=== PATIENT | male | born 1955 | race Caucasian/White ===

== ENCOUNTER 2022-11-09 12:13 | Inpatient (IN) | payer OTHER ==
[2022-11-09 13:09] LABS: Absolute Lymphocytes (CBC) 1.5 K/uL (0.7-4.9); Hematocrit 27.6 % (39.6-49.0); MCV 85.6 fL (80-100); MPV 7.7 fL (7.6-11.3); RBC Red Blood Cell Count 3.22 M/uL (4.33-5.43)
[2022-11-09 13:10] LABS: Protime INR 1.08
--- NOTE | 2022-11-09 13:11 | RAD REPORT ---
EXAM DESCRIPTION: RAD - Chest Single View - 11/09/2022 1:06 pm CLINICAL HISTORY: elevated K+ Chest pain. COMPARISON: Abdomen Acute Series dated 03/06/2022; CHEST SINGLE VIEW dated 06/20/2012 FINDINGS: Portable technique limits examination quality. The lungs are grossly clear. The heart is normal in size. No displaced fractures. IMPRESSION: No acute intrathoracic process suspected.
[2022-11-09 13:32] LABS: ALT/SGPT 18 U/L (16-61); AST/SGOT 16 U/L (15-37); Albumin 3.2 g/dL (3.4-5.0); Alkaline Phosphatase 95 U/L (45-117); BUN Blood Urea Nitrogen 56 mg/dL (7-18); Bicarbonate 17 mEq/L (21-32); Bilirubin Total 0.3 mg/dL (0.2-1.0); Glomerular Filtration Rate 21 ml/min (=/>90); Glucose Level 183 mg/dL (74-106); NT PRO-BNP 166 pg/mL (<125); Protein, Total 6.4 g/dL (6.4-8.2); Sodium Level 137 mEq/L (136-145); Troponin High Sensitivity 29.3 pg/mL (<58.9)
[2022-11-09 13:33] LABS: Bilirubin Direct < 0.1 mg/dL (0-0.2); Bilirubin Indirect, Calculated ND mg/dL (0.2-0.8)
[2022-11-09 13:36] LABS: Potassium 6.4 mEq/L (3.5-5.1)
[2022-11-09] MEDS ORDERED: ALBUTEROL 2.5 MG/3 ML NEB SOL ONE (14:18)
[2022-11-09] MEDS ORDERED: INSULIN -REGULAR HUMAN 50 UNIT/0.5 ML ML ONE ×2 (14:18→17:27)
[2022-11-09] MEDS ORDERED: D5W 1,000 ML IV ONE (14:19)
[2022-11-09] MEDS ORDERED: NA CHLORIDE 0.9% 500 ML ONE (14:19)
[2022-11-09] MEDS ORDERED: CALCIUM GLUCONATE 1 GM IVPB 1 GM/50 ML BAG IV ONE (14:19)
--- NOTE | 2022-11-09 14:23 | EDPHYS ---
Physician Documentation [facility] Name: Sergo Quinones Age: 67 yrs Sex: Male : 1955 Arrival Date: 11/09/2022 Time: 12:13 Bed 6 Private MD: ED Physician Leo Cohn HPI: 11/09 12:52 This 67 yrs old Male presents to ER via Ambulatory with complaints of Abnormal Lab snw Results. 12:52 Onset: The symptoms/episode began/occurred acutely. Associated signs and symptoms: The snw patient has no apparent associated signs or symptoms. Modifying factors: The patient symptoms are alleviated by nothing. It is unknown whether or not the patient has had similar symptoms in the past. Saw Dr. Diamond, routine labs collected. Pt had repeat labs and then the office called him and directed him to the ED for elevated potassium. . Pt currently not taking some of his blood pressure medications as his bp has been in range. . Historical: - Allergies: 12:22 No Known Allergies; cm10 - Home Meds: 12:22 Farxiga 5 mg oral tablet [Active]; rosuvastatin 20 mg oral tablet [Active]; clonidine cm10 HCl 0.3 mg Oral tablet [Active]; allopurinol 100 mg Oral tablet [Active]; spironolactone 50 mg Oral tablet [Active]; - PMHx: 12:22 diabetes mellitus; Hypercholesterolemia; Hypertensive disorder; cm10 - PSHx: 12:22 back; leg; Shoulder; cm10 - Immunization history:: Adult Immunizations unknown. - Social history:: Smoking status: Patient reports use of chewing tobacco. ROS: 12:52 Constitutional: Negative for fever, chills, and weight loss, Eyes: Negative for injury, snw pain, redness, and discharge, ENT: Negative for injury, pain, and discharge, Neck: Negative for injury, pain, and swelling, Cardiovascular: Negative for chest pain, palpitations, and edema, Respiratory: Negative for shortness of breath, cough, wheezing, and pleuritic chest pain, Abdomen/GI: Negative for abdominal pain, nausea, vomiting, diarrhea, and constipation, Back: Negative for injury and pain, : Negative for injury, bleeding, discharge, and swelling, MS/Extremity: Negative for injury and deformity, Skin: Negative for injury, rash, and discoloration, Neuro: Negative for headache, weakness, numbness, tingling, and seizure, Psych: Negative for depression, anxiety, suicide ideation, homicidal ideation, and hallucinations. Exam: 12:52 Constitutional: This is a well developed, well nourished patient who is awake, alert, snw and in no acute distress. Head/Face: Normocephalic, atraumatic. Eyes: Pupils equal round and reactive to light, extra-ocular motions intact. Lids and lashes normal. Conjunctiva and sclera are non-icteric and not injected. Cornea within normal limits. Periorbital areas with no swelling, redness, or edema. ENT: Nares patent. No nasal discharge, no septal abnormalities noted. Tympanic membranes are normal and external auditory canals are clear. Oropharynx with no redness, swelling, or masses, exudates, or evidence of obstruction, uvula midline. Mucous membranes moist. Neck: Trachea midline, no thyromegaly or masses palpated, and no cervical lymphadenopathy. Supple, full range of motion without nuchal rigidity, or vertebral point tenderness. No Meningismus. Chest/axilla: Normal chest wall appearance and motion. Nontender with no deformity. No lesions are appreciated. Cardiovascular: Regular rate and rhythm with a normal S1 and S2. No gallops, murmurs, or rubs. Normal PMI, no JVD. No pulse deficits. Respiratory: Lungs have equal breath sounds bilaterally, clear to auscultation and percussion. No rales, rhonchi or wheezes noted. No increased work of breathing, no retractions or nasal flaring. Abdomen/GI: Soft, non-tender, with normal bowel sounds. No distension or tympany. No guarding or rebound. No evidence of tenderness throughout. Back: No spinal tenderness. No costovertebral tenderness. Full range of motion. Skin: Warm, dry with normal turgor. Normal color with no rashes, no lesions, and no evidence of cellulitis. MS/ Extremity: Pulses equal, no cyanosis. Neurovascular intact. Full, normal range of motion. Neuro: Awake and alert, GCS 15, oriented to person, place, time, and situation. Cranial nerves II-XII grossly intact. Motor strength 5/5 in all extremities. Sensory grossly intact. Cerebellar exam normal. Normal gait. Psych: Awake, alert, with orientation to person, place and time. Behavior, mood, and affect are within normal limits. Vital Signs: 10:00 BP 127 / 65; Pulse 56; Resp 18; Pulse Ox 97% on R/A; db 11:00 BP 113 / 60; Pulse 45; Resp 16; Pulse Ox 95% on R/A; db 12:21 BP 120 / 67; Pulse 78; Resp 16; Temp 98.1(TE); Pulse Ox 100% on R/A; Weight 81.65 kg; cm10 Height 5 ft. 9 in. ; Pain 0/10; 12:45 BP 103 / 65; Pulse 68; Resp 16; Pulse Ox 99% on R/A; db 14:00 BP 112 / 71; Pulse 64; Resp 18; Pulse Ox 99% on R/A; db 15:28 BP 136 / 61; Pulse 74; Resp 16; Pulse Ox 98% on R/A; iw 12:21 Body Mass Index 26.58 (81.65 kg, 175.26 cm) cm10 12:21 Pain Scale: Adult cm10 MDM: 12:25 Patient medically screened. snw 14:22 Differential diagnosis: HEMANT, renal failure, medication toxic effect, dehydration. Data snw reviewed: vital signs, nurses notes. Management of patient was discussed with the following: Hospitalist: Dr. Matias, Dr. Jennyfer pugh. Counseling: I had a detailed discussion with the patient and/or guardian regarding: the historical points, exam findings, and any diagnostic results supporting the discharge/admit diagnosis, lab results, radiology results, the need for further work-up and treatment in the hospital. 14:35 Management of patient was discussed with the following: Communication Analyst: Nephrology called snw and ivf rate changed, will give another 500ml NS bolus. He will kindly place orders for Kayexalate and other labs/meds. Special discussion: Based on the history and exam findings, there is no indication for further emergent testing or inpatient evaluation. 11/09 12:26 Order name: Basic Metabolic Panel; Complete Time: 13:50 snw 11/09 12:26 Order name: CBC with Diff; Complete Time: 13:15 snw 11/09 12:26 Order name: LFT's; Complete Time: 13:50 snw 11/09 12:26 Order name: Magnesium; Complete Time: 13:50 snw 11/09 12:26 Order name: NT PRO-BNP; Complete Time: 13:50 snw 11/09 12:26 Order name: PT-INR; Complete Time: 13:15 snw 11/09 12:26 Order name: Troponin HS; Complete Time: 13:50 snw 11/09 14:26 Order name: Urine W/Microscopic (UAM); Complete Time: 15:10 snw 11/09 14:26 Order name: Urine Potassium Random; Complete Time: 15:18 snw 11/09 14:33 Order name: Potassium; Complete Time: 17:12 EDMS 11/09 14:33 Order name: Urinalysis W/Microscopic EDMS 11/09 14:38 Order name: Urine For Protein, Random; Complete Time: 15:10 snw 11/09 16:04 Order name: Glucose, Ancillary Testing; Complete Time: 16:04 EDMS 11/09 17:26 Order name: Glucose, Ancillary Testing; Complete Time: 17:27 EDMS 11/09 12:26 Order name: XRAY Chest (1 view); Complete Time: 13:15 snw 11/09 15:33 Order name: Abdomen ; Complete Time: 16:01 EDMS 11/09 12:26 Order name: EKG; Complete Time: 12:27 snw 11/09 12:26 Order name: Cardiac monitoring; Complete Time: 13:17 snw 11/09 12:26 Order name: EKG - Nurse/Tech; Complete Time: 13:15 snw 11/09 12:26 Order name: IV Saline Lock; Complete Time: 12:53 snw 11/09 12:26 Order name: Labs collected and sent; Complete Time: 12:53 snw 11/09 12:26 Order name: O2 Per Protocol; Complete Time: 12:53 snw 11/09 12:26 Order name: O2 Sat Monitoring; Complete Time: 12:54 snw 11/09 14:31 Order name: Misc. Order: slow D5 soln to 82ml/hr; Complete Time: 14:41 snw 11/09 16:05 Order name: PO challenge; Complete Time: 16:19 snw Administered Medications: 13:50 CANCELLED (Other Intervention Used): D10 in Water IVP 160 ml IVP once snw 14:24 Drug: D5W IV 100 mEq/L 1000 ml Route: IV; Rate: 200 ml/hr; Site: right antecubital; iw 14:30 Follow up: IV Status: Completed infusion iw 14:33 Drug: Albuterol Inhalation 2.5 mg Route: Inhalation; iw 14:34 Drug: Calcium Gluconate IVPB 1 grams Route: IVPB; Infused Over: 60 mins; Site: left iw forearm; 15:35 Follow up: IV Status: Completed infusion iw 14:34 Drug: Albuterol Inhalation 2.5 mg Route: Inhalation; iw 14:34 Drug: Albuterol Inhalation 2.5 mg Route: Inhalation; iw 14:42 Drug: NS 0.9% IV 500 ml Route: IV; Rate: bolus; Site: right forearm; iw 15:40 Follow up: IV Status: Completed infusion iw 14:45 Drug: Insulin Regular Human IVP 10 units {Co-Signature: iw (Jazmyn Steen RN).} aa5 Route: IVP; Site: right forearm; 15:00 Follow up: Response: No adverse reaction iw 11/10 07:13 Not Given (Other Intervention Used): NS 0.9% IV 500 ml IV at bolus once iw 07:13 Not Given (Other Intervention Used): Insulin Regular Human IVP 5 units IVP once iw Disposition Summary: 11/09/22 14:22 Hospitalization Ordered Hospitalization Status: Inpatient Admission snw Provider: Arun Matias Location: Telemetry/MedSurg (Inpatient) snw Condition: Stable snw Problem: new snw Symptoms: are unchanged snw Bed/Room Type: Standard snw Room Assignment: 404(11/09/22 17:03) dw Diagnosis - 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 snw snw 17:03 14:22 snw dw
--- NOTE | 2022-11-09 14:23 | ER ---
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 Pt denies any complaints at this time. Coronavirus screen: Vaccine status: Patient reports receiving the 2nd dose of the covid vaccine. Client denies travel out of the [place] in the last 14 days. At this time, the client does not indicate any symptoms associated with coronavirus-19. Ebola Screen: Patient denies travel to an Ebola-affected area in the 21 days before illness onset. 12:20 Method Of Arrival: Ambulatory cm10 12:21 Initial Sepsis Screen: Does the patient meet any 2 criteria? No. Patient's initial cm10 sepsis screen is negative. Does the patient have a suspected source of infection? No. Patient's initial sepsis screen is negative. Risk Assessment: Do you want to hurt yourself or someone else? Patient reports no desire to harm self or others. Onset of symptoms was November 09, 2022. 12:21 Acuity: FITO 3 cm10 Triage Assessment: 12:25 General: Appears in no apparent distress. comfortable, Behavior is calm, cooperative. cm10 Pain: Denies pain. Historical: - Allergies: 12:22 No Known Allergies; cm10 - Home Meds: 12:22 Farxiga 5 mg oral tablet [Active]; rosuvastatin 20 mg oral tablet [Active]; clonidine cm10 HCl 0.3 mg Oral tablet [Active]; allopurinol 100 mg Oral tablet [Active]; spironolactone 50 mg Oral tablet [Active]; - PMHx: 12:22 diabetes mellitus; Hypercholesterolemia; Hypertensive disorder; cm10 - PSHx: 12:22 back; leg; Shoulder; cm10 - Immunization history:: Adult Immunizations unknown. - Social history:: Smoking status: Patient reports use of chewing tobacco. Screenin:[address] [facility] ED Fall Risk Assessment (Adult) History of falling in the last 3 months, iw including since admission. Abuse screen: Denies threats or abuse. Denies injuries from another. Nutritional screening: No deficits noted. Tuberculosis screening: No symptoms or risk factors identified. Assessment: 12:54 General: Appears in no apparent distress. comfortable, Behavior is calm, cooperative. iw Pain: Denies pain. Neuro: Level of Consciousness is awake, alert, obeys commands, Oriented to person, place, time, situation, Moves all extremities. Full function. Cardiovascular: Patient's skin is warm and dry. Respiratory: Respiratory effort is even, unlabored, Respiratory pattern is regular, symmetrical. Derm: Skin is intact, is healthy with good turgor. Musculoskeletal: Range of motion: intact in all extremities. 12:56 Reassessment: Patient appears in no apparent distress at this time. Patient and/or db family updated on plan of care and expected duration. Pain level reassessed. Patient is alert, oriented x 3, equal unlabored respirations, skin warm/dry/pink. 14:16 Reassessment: Patient appears in no apparent distress at this time. Patient and/or iw family updated on plan of care and expected duration. Pain level reassessed. Patient is alert, oriented x 3, equal unlabored respirations, skin warm/dry/pink. Patient denies pain at this time. 15:28 Reassessment: Patient appears in no apparent distress at this time. Patient and/or iw family updated on plan of care and expected duration. Pain level reassessed. Patient is alert, oriented x 3, equal unlabored respirations, skin warm/dry/pink. Vital Signs: 10:00 BP 127 / 65; Pulse 56; Resp 18; Pulse Ox 97% on R/A; db 11:00 BP 113 / 60; Pulse 45; Resp 16; Pulse Ox 95% on R/A; db 12:21 BP 120 / 67; Pulse 78; Resp 16; Temp 98.1(TE); Pulse Ox 100% on R/A; Weight 81.65 kg; cm10 Height 5 ft. 9 in. ; Pain 0/10; 12:45 BP 103 / 65; Pulse 68; Resp 16; Pulse Ox 99% on R/A; db 14:00 BP 112 / 71; Pulse 64; Resp 18; Pulse Ox 99% on R/A; db 15:28 BP 136 / 61; Pulse 74; Resp 16; Pulse Ox 98% on R/A; iw 12:21 Body Mass Index 26.58 (81.65 kg, 175.26 cm) cm10 12:21 Pain Scale: Adult cm10 ED Course: 12:16 Patient arrived in ED. im 12:22 Triage completed. cm10 12:25 Amrita Alarcon FNP-C is PHCP. snw 12:25 Leo Cohn MD is Attending Physician. snw 12:25 Arm band placed on Patient placed in an exam room, on a stretcher. cm10 12:46 Jazmyn Steen, RONEY is Primary Nurse. iw 12:54 Inserted saline lock: 20 gauge in right forearm, using aseptic technique. Blood iw collected. 12:56 Patient has correct armband on for positive identification. Bed in low position. Call db light in reach. Side rails up X 1. Client placed on continuous cardiac and pulse oximetry monitoring. NIBP monitoring applied. Warm blanket given. 13:08 XRAY Chest (1 view) In Process Unspecified. EDMS 13:36 Notified Nurse Practitioner and/or Physician Trailer Park Manager of a critical lab result(s), aa5 Potassium 6.4. 14:21 Arun Matias is Hospitalizing Provider. snw 15:28 No provider procedures requiring assistance completed. iw 15:46 Bladder scan completed. [address] Cohn notified. sc3 15:51 Abdomen In Process Unspecified. EDMS 16:33 Potassium Sent. iw 17:52 Patient admitted, IV remains in place. iw Administered Medications: 13:50 CANCELLED (Other Intervention Used): D10 in Water IVP 160 ml IVP once snw 14:24 Drug: D5W IV 100 mEq/L 1000 ml Route: IV; Rate: 200 ml/hr; Site: right antecubital; iw 14:30 Follow up: IV Status: Completed infusion iw 14:33 Drug: Albuterol Inhalation 2.5 mg Route: Inhalation; iw 14:34 Drug: Calcium Gluconate IVPB 1 grams Route: IVPB; Infused Over: 60 mins; Site: left iw forearm; 15:35 Follow up: IV Status: Completed infusion iw 14:34 Drug: Albuterol Inhalation 2.5 mg Route: Inhalation; iw 14:34 Drug: Albuterol Inhalation 2.5 mg Route: Inhalation; iw 14:42 Drug: NS 0.9% IV 500 ml Route: IV; Rate: bolus; Site: right forearm; iw 15:40 Follow up: IV Status: Completed infusion iw 14:45 Drug: Insulin Regular Human IVP 10 units {Co-Signature: grace (Jazmyn Steen RN).} aa5 Route: IVP; Site: right forearm; 15:00 Follow up: Response: No adverse reaction iw 11/10 07:13 Not Given (Other Intervention Used): NS 0.9% IV 500 ml IV at bolus once iw 07:13 Not Given (Other Intervention Used): Insulin Regular Human IVP 5 units IVP once iw Medication: 11/09 12:54 VIS not applicable for this client. iw Outcome: 14:22 Decision to Hospitalize by Provider. snw 17:52 Admitted to Tele accompanied by tech, via wheelchair. iw 17:52 Condition: good 17:52 Discharge instructions given to patient, Instructed on the need for admit. 17:53 Patient left the ED. iw Signatures: Dispatcher [employer] EDMS Amrita Alarcon, CODING EDUCATOR-C CODING EDUCATOR-Csnw Jazmyn Steen, RN RN iw Nydia Hernandez RN RN aa5 Yashira Soler, RN RN Amaya Sandoval Clarissa RN RN cm10 Jeffrey Gonzalez, RN RN sc3 Jazmyn Steen RN iw
[2022-11-09] MEDS ORDERED: SODIUM ZIRCONIUM CYCLOSILICATE 10 GM/PKT PO ONE (15:00)
[2022-11-09 15:02] LABS: Urine Bacteria None Seen /HPF (<20); Urine Bilirubin NEGATIVE (Negative); Urine Blood Negative (Negative); Urine Clarity Clear (Clear); Urine Color Colorless (Yellow); Urine Glucose 3+ (Negative); Urine Protein 2+ (Negative); Urine RBC <5 /HPF (None Seen); Urine Urobilinogen Normal (Normal); Urine pH 5.5 (5.0-7.0)
[2022-11-09] MEDS: NACHLORIDE 0.45% 1,000 ML with NA BICARB 8.4% 75 MEQ IV SCH ×2 (15:45)
--- NOTE | 2022-11-09 15:58 | RAD REPORT ---
EXAM DESCRIPTION: CT - Abdomen Pelvis Wo Contrast - 11/09/2022 3:49 pm CLINICAL HISTORY: Abdominal pain. HEMANT COMPARISON: Abdomen Pelvis Wo Contrast dated 03/06/2022 TECHNIQUE: CT imaging of the abdomen and pelvis was performed without contrast. Solid organ, bowel a nd vascular assessment is limited due to lack of IV and oral contrast. All CT scans are performed using dose optimization technique as appropriate and may include automated exposure control or mA/KV adjustment according to patient size. FINDINGS: The lower lung cardenas are clear. The liver, spleen, pancreas, adrenal glands are within normal limits for a limited non-contrast exami nation.Bilateral renal cysts, likely benign. Mild cortical thinning bilateral kidneys. No bowel obstruction, free air, free fluid or abscess. Significant stool is present throughout the co placido. The appendix is normal. Mild lower lumbar degenerative changes.Small bilateral fat containing inguinal hernias. IMPRESSION: Significant stool is present throughout the colon. A limited non-contrast examination was performed as detailed.
--- NOTE | 2022-11-09 16:27 | P.HP ---
Certification for Inpatient Patient admitted to: Inpatient With expected LOS: >2 Midnights Practitioner: I am a practitioner with admitting privileges, knowledge of patient current condition, hospital course, and medical plan of care. Services: Services provided to patient in accordance with Admission requirements found in Title 42 Section 412.3 of the Code of Federal Regulations Patient History Date of Service: 11/09/22 Reason for admission: Abnormal labs History of Present Illness: 67-year-old gentleman with a history of hypertension, diabetes mellitus was referred to the emergency department by his PCP due to hyperkalemia and acute renal failure on his most recent labs. Patient denies any complain. He denied any nausea or vomiting or diarrhea or any reason for dehydration. He stated he has been seeing urology Dr. Huff for enlarged prostate, urinary retention with dribbling. He states that he was prescribed a statin medication for urinary retention but he stopped taking it due to dizziness. He also stated his PCP recently told him not to take his antihypertensives due to borderline low blood pressure. Blood work in the ED demonstrated potassium level of 6.4, HEMANT with creatinine of 3.13 and metabolic acidosis. Postvoid urine according to the ED provider was 115 ml. Nephrology was contacted, patient given Lokelma and started on bicarb drip. He is admitted for further management. Allergies No Known Allergies Allergy (Unverified 06/20/12 21:10) - Past Medical/Surgical History -: Essential hypertension -: Diabetes mellitus type -: BPH - Family History Mother -: Other (see notes) (Arthritis) - Social History Smoking Status: Never smoker Alcohol use: No CD- Drugs: No Place of Residence: Home Review of Systems Other: Patient denied any fever. He denied any constipation. He denied any headache or confusion. Except as documented, all other systems reviewed and negative. Physical Examination - Physical Exam General: Alert, In no apparent distress, Oriented x3 HEENT: PERRLA, Mucous membr. moist/pink, Sclerae nonicteric Neck: Supple, JVD not distended Respiratory: Clear to auscultation bilaterally, Normal air movement Cardiovascular: No edema, Regular rate/rhythm, Normal S1 S2 Gastrointestinal: Normal bowel sounds, Soft and benign, Non-distended, No tenderness Musculoskeletal: No swelling, No tenderness Integumentary: No rashes, No cyanosis Neurological: Normal speech, Normal strength at 5/5 x4 extr, Cranial nerves 3-12 intact Lymphatics: No axilla or inguinal lymphadenopathy - Studies Laboratory Data (last 24 hrs) 11/09/22 12:50: PT 11.9, INR 1.08 11/09/22 12:50: WBC 11.10 H, Hgb 9.0 L, Hct 27.6 L, Plt Count 262 11/09/22 12:50: Sodium 137, Potassium 6.4 H*, BUN 56 H, Creatinine 3.13 H, Glucose 183 H, Magnesium 2.0, Total Bilirubin 0.3, AST 16, ALT 18, Alkaline Phosphatase 95 Assessment and Plan - Problems (Diagnosis) (1) Hyperkalemia Current Visit: Yes Status: Acute (2) Acute kidney injury Current Visit: Yes Status: Acute (3) Essential hypertension Current Visit: Yes Status: Acute (4) Diabetes mellitus type 2 in nonobese Current Visit: Yes Status: Acute - Plan Admit patient to the medical floor. Nephrology consulted, patient given Lokelma and bicarb drip. Continue bicarb Repeat potassium level shows improvement. Aggressive IV hydration. Patient noted to be borderline hypotensive. HEMANT possibly secondary to ATN. CT abdomen and pelvis results reviewed-no obstructive uropathy. No antihypertensives. Monitor renal function and urine output. - Advance Directives Does patient have a Living Will: No Does patient have a Durable POA for Healthcare: No
[2022-11-09] MEDS ORDERED: ACETAMINOPHEN 500 MG TAB PO PRN (17:15)
[2022-11-09] MEDS ORDERED: ONDANSETRON 4 MG/2 ML VIAL IV PRN (17:15)
[2022-11-09] MEDS: INSULIN -REGULAR HUMAN 50 UNIT/0.5 ML ML SQ SCH ×2 (17:15→21:00)
[2022-11-09] MEDS ORDERED: HEPARIN 5000 UNIT/ML 1 ML VIAL ONE (17:42)
[2022-11-09] MEDS: HEPARIN 5000 UNIT/ML 1 ML VIAL SQ SCH (17:50)
[2022-11-09 19:23] VITALS: BMI 26.6
--- NOTE | 2022-11-09 19:29 | P.PN ---
Brief Renal note (chart review only, full consult note to follow) Stage II HEMATN on underlying CKD NOS, prior labs in this EMR show elevated Cr level and renal imaging reports some cortical thinning. HEMANT appears to be in the setting of relative hypotension, concurrent ACEi and other medication use. Will see if this is more of a functional injury that quickly recovers. Hyperkalemia washout therapy ordered, repeat K is < 5.5. Bicarb added IVF ordered. Jose Tanner MD, SIMEON
[2022-11-09 23:33] LABS: Specific Gravity 1.005 (1.005-1.030); Urine Bacteria None Seen /HPF (<20); Urine Bilirubin NEGATIVE (Negative); Urine Blood Negative (Negative); Urine Clarity Clear (Clear); Urine Color Colorless (Yellow); Urine Glucose 4+ (Negative); Urine Protein 1+ (Negative); Urine RBC <5 /HPF (None Seen); Urine Urobilinogen Normal (Normal); Urine pH 5.5 (5.0-7.0)
[2022-11-10] MEDS: HEPARIN 5000 UNIT/ML 1 ML VIAL SQ SCH ×3 (00:17→17:13)
[2022-11-10] MEDS ORDERED: NACHLORIDE 0.45% 0 ML IV ONE (00:35)
[2022-11-10] MEDS ORDERED: SODIUM BICARB 50 MEQ/50ML VIAL ONE ×3 (00:35→13:02)
[2022-11-10 01:00] VITALS: O2SAT 99
[2022-11-10] MEDS: NACHLORIDE 0.45% 1,000 ML with NA BICARB 8.4% 75 MEQ IV SCH ×2 (01:59)
[2022-11-10 04:09] LABS: Absolute Lymphocytes (CBC) 2.1 K/uL (0.7-4.9); Lymphocytes % 17.4 % (15.3-44.8); MCV 85.6 fL (80-100); MPV 7.9 fL (7.6-11.3)
[2022-11-10 04:18] LABS: Magnesium 1.9 mg/dL (1.6-2.4); Phosphorus 4.6 mg/dL (2.5-4.9); Potassium 5.1 mEq/L (3.5-5.1)
[2022-11-10] MEDS: INSULIN -REGULAR HUMAN 50 UNIT/0.5 ML ML SQ SCH ×4 (07:30→21:13)
[2022-11-10] MEDS ORDERED: NACHLORIDE 0.45% 1,000 ML with NA BICARB 8.4% 75 MEQ IV SCH ×2 (10:46)
--- NOTE | 2022-11-10 11:44 | P.CNS ---
Date of Consult: 11/10/22 Reason for Consult: HEMANT, hyperkalemia Requesting Physician: lasha lee Chief Complaint: Abnormal labs History of Present Illness: Pt is a 67 yo male with a history of chronic hypertension on multiple BP lowering agents, non insulin dependent diabetes mellitus who was referred to the emergency department by his PCP due to abnormal labs. Patient cites some lower BP recently down into the systolic teens and reports losing as much as 20 lbs recently with diuretics such as Spironolactone which he was holding. He denies any nausea or vomiting or diarrhea. His labs on admission revealed HEMANT, hyperkalemia and metab acidosis. Allergies No Known Allergies Allergy (Unverified 06/20/12 21:10) Home Medications: Amlodipine Besylate 1 tab PO DAILY 11/10/22 Dapagliflozin Propanediol [Farxiga] 1 tab PO DAILY 11/10/22 Rosuvastatin Calcium [Crestor] 1 tab PO DAILY 11/10/22 Spironolactone 1 tab PO DAILY 11/10/22 Tamsulosin HCl [Flomax] 1 tab PO DAILY 11/10/22 allopurinoL [Allopurinol] 1 tab PO DAILY 11/10/22 cloNIDine HCL [Catapres*] 1 tab PO TID 11/10/22 lisinopriL [Lisinopril] 1 tab PO DAILY 11/10/22 - Past Medical/Surgical History -: Essential hypertension -: Diabetes mellitus type -: BPH - Family History Mother Medical History: Other (see notes) - Social History Alcohol use: No CD- Drugs: No Caffeine use: No Place of Residence: Home Review of Systems General: As per HPI Eyes: Unremarkable ENT: Unremarkable Respiratory: Unremarkable Cardiovascular: Light Headedness, As per HPI Gastrointestinal: Unremarkable Genitourinary: Unremarkable Musculoskeletal: Unremarkable Integumentary: Unremarkable Neurological: Unremarkable Lymphatics: Unremarkable Physical Examination Temp Pulse Resp BP Pulse Ox 99.0 F 86 16 177/81 H 96 11/10/22 08:00 11/10/22 08:00 11/10/22 08:00 11/10/22 08:00 11/10/22 08:00 General: Alert, In no apparent distress, Cooperative HEENT: Atraumatic, Normocephalic Neck: Supple Respiratory: Clear to auscultation bilaterally, Normal air movement Cardiovascular: No edema, Regular rate/rhythm, Normal S1 S2 Gastrointestinal: Soft and benign, Non-distended, No tenderness Musculoskeletal: No clubbing, No swelling, No contractures, No erythema Integumentary: No rashes, No breakdown Neurological: Normal speech, Sensation intact, Normal affect Laboratory Data (last 24 hrs) 11/09/22 12:50: PT 11.9, INR 1.08 11/09/22 12:50: WBC 11.10 H, Hgb 9.0 L, Hct 27.6 L, Plt Count 262 11/09/22 12:50: Sodium 137, Potassium 6.4 H*, BUN 56 H, Creatinine 3.13 H, Glucose 183 H, Magnesium 2.0, Total Bilirubin 0.3, AST 16, ALT 18, Alkaline Phosphatase 95 Conclusions/Impression: A/P) 1. Stage II HEMANT on underlying CKD NOS, prior labs in this EMR show elevated Cr level and renal imaging reports some cortical thinning. HEMANT appears to be functional injury in the setting of relative hypotension, concurrent ACEi and diuretic use (with both mod strength aldosterone antagonist use along with a SGLT2i agent which can also cause vol depletion). 2. Cr level downward trending post hydration 3. UA on admission not too remarkable 3. Hyperkalemia resolved s/p medical washout therapy 4. Metab acidosis in the setting of HEMANT, reduced renal ammoniagenesis and Aldactone use -bicarb deficit improved. 5. Cont to hold Lisinopril, Spironolactone, Farxiga. 6. Monitor BP trend, check orthostatic vitals, will stop IVF early on. Will slowly re-introduce BP meds. Jose Tanner MD, SIMEON
--- NOTE | 2022-11-10 11:54 | P.PN ---
Subjective Date of Service: 11/10/22 Chief Complaint: Abnormal labs Patient has no new complain. No issues overnight. Physical Examination - Vital Signs Temperature: 99.0 F Blood Pressure: 177/81 Pulse: 86 Respirations: 16 Pulse Ox (%): 96 - Physical Exam General: Alert, In no apparent distress, Oriented x3 HEENT: Mucous membr. moist/pink Neck: Supple, JVD not distended Respiratory: Clear to auscultation bilaterally, Normal air movement Cardiovascular: No edema, Regular rate/rhythm, Normal S1 S2 Gastrointestinal: Normal bowel sounds, Soft and benign, Non-distended, No tenderness Musculoskeletal: No swelling Integumentary: No rashes, No cyanosis Neurological: Normal strength at 5/5 x4 extr - Studies Laboratory Data (last 24 hrs) 11/09/22 12:50: PT 11.9, INR 1.08 11/09/22 12:50: WBC 11.10 H, Hgb 9.0 L, Hct 27.6 L, Plt Count 262 11/09/22 12:50: Sodium 137, Potassium 6.4 H*, BUN 56 H, Creatinine 3.13 H, Glucose 183 H, Magnesium 2.0, Total Bilirubin 0.3, AST 16, ALT 18, Alkaline Phosphatase 95 Assessment And Plan - Current Problems (Diagnosis) (1) Hyperkalemia Current Visit: Yes Status: Acute (2) Acute kidney injury Current Visit: Yes Status: Acute (3) Essential hypertension Current Visit: Yes Status: Acute (4) Diabetes mellitus type 2 in nonobese Current Visit: Yes Status: Acute (5) BPH (benign prostatic hyperplasia) Current Visit: Yes Status: Acute - Plan Status post [facility] for hyperkalemia. Hyperkalemia resolved. Metabolic acidosis is improving with bicarb drip Nephrology is managing. Fluid and BP management per nephrology. Patient was initially borderline hypotensive. Blood pressure has improved and patient is currently hypertensive. HEMANT possibly secondary to ATN. CT abdomen and pelvis results reviewed-no obstructive uropathy. Monitor renal function and urine output. Start [id number] given hypertension, titrated to 10 mg daily as needed. Hold lisinopril and Aldactone. Continue tamsulosin. Hold Farxiga.
[2022-11-10] MEDS ORDERED: NACHLORIDE 0.45% 1,000 ML IV ONE (12:51)
[2022-11-10] MEDS: allopurinoL 100 MG TAB PO SCH (13:07)
[2022-11-10] MEDS: AMLODIPINE 5 MG TAB PO SCH (13:07)
[2022-11-10] MEDS ORDERED: ROSUVASTATIN 10 MG TAB PO SCH (21:00)
[2022-11-10] MEDS ORDERED: FAMOTIDINE 20 MG/2 ML VIAL IV ONE (22:30)
[2022-11-11] MEDS: HEPARIN 5000 UNIT/ML 1 ML VIAL SQ SCH ×2 (00:49→07:49)
[2022-11-11 04:21] LABS: Absolute Lymphocytes (CBC) 1.7 K/uL (0.7-4.9); Hematocrit 28.8 % (39.6-49.0); Lymphocytes % 13.9 % (15.3-44.8); MPV 7.8 fL (7.6-11.3); RBC Red Blood Cell Count 3.39 M/uL (4.33-5.43)
[2022-11-11 04:32] LABS: Albumin 3.1 g/dL (3.4-5.0); Phosphorus 3.4 mg/dL (2.5-4.9); Potassium 4.9 mEq/L (3.5-5.1)
[2022-11-11 04:42] VITALS: TEMP 97.8
[2022-11-11] MEDS: INSULIN -REGULAR HUMAN 50 UNIT/0.5 ML ML SQ SCH (07:30)
[2022-11-11] MEDS: AMLODIPINE 5 MG TAB PO SCH (07:48)
[2022-11-11] MEDS: allopurinoL 100 MG TAB PO SCH (07:49)
[2022-11-11 07:53] VITALS: BP 155/74
[2022-11-11] MEDS ORDERED: TAMSULOSIN 0.4 MG SR CAP PO SCH (09:00)
[2022-11-11] MEDS ORDERED: HOME MED 1 EA UNK (Rosuvastatin Calcium [Crestor] 20 MG Tablet) PO SCH (09:00)
--- NOTE | 2022-11-11 11:09 | P.DS ---
Admission Date: 11/09/22 Discharge Date: 11/11/22 Disposition: ROUTINE DISCHARGE Discharge Condition: FAIR Reason for Admission: Abnormal labs - Problems (1) Hyperkalemia Current Visit: Yes Status: Acute (2) Acute kidney injury Current Visit: Yes Status: Acute (3) Essential hypertension Current Visit: Yes Status: Acute (4) Diabetes mellitus type 2 in nonobese Current Visit: Yes Status: Acute (5) BPH (benign prostatic hyperplasia) Current Visit: Yes Status: Acute Brief History of Present Illness: 67-year-old gentleman with a history of hypertension, diabetes mellitus was referred to the emergency department by his PCP due to hyperkalemia and acute renal failure on his most recent labs. Patient denies any complain. He denied any nausea or vomiting or diarrhea or any reason for dehydration. He stated he has been seeing urology Dr. Huff for enlarged prostate, urinary retention with dribbling. He states that he was prescribed a statin medication for urinary retention but he stopped taking it due to dizziness. He also stated his PCP recently told him not to take his antihypertensives due to borderline low blood pressure. Blood work in the ED demonstrated potassium level of 6.4, HEMANT with creatinine of 3.13 and metabolic acidosis. Postvoid urine according to the ED provider was 115 ml. Nephrology was contacted, patient given Lokelma and started on bicarb drip. He was admitted for further management. Hospital Course: Patient admitted to the medical floor and hydrated with IV bicarb drip. Status post Lokelma for hyperkalemia. Hyperkalemia resolved. Metabolic acidosis improved with bicarb drip Nephrology evaluated patient and assisted with management. Patient was initially borderline hypotensive. Blood pressure has improved and patient became hypertensive. HEMANT possibly secondary to ATN. CT abdomen and pelvis results reviewed-no obstructive uropathy. Patient was still hypertensive after restarting amlodipine 5 mg daily. Amlodipine 10 mg daily is resumed on discharge. Patient states that his PCP recently stopped all his antihypertensives because his blood pressure was borderline low. We will need to resume his antihypertensives in stepwise and titrate slowly. Held lisinopril and Aldactone given HEMANT and hyperkalemia. Continued tamsulosin. Held Farxiga given HEMANT. 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 Yates to resume his other medications as needed. Vital Signs/Physical Exam: Temp Pulse Resp BP Pulse Ox 97.8 F 84 18 155/74 H 98 11/11/22 08:00 11/11/22 08:00 11/11/22 08:00 11/11/22 08:00 11/11/22 08:00 General: Alert, In no apparent distress, Oriented x3 HEENT: Mucous membr. moist/pink Neck: Supple, JVD not distended Respiratory: Clear to auscultation bilaterally, Normal air movement Cardiovascular: No edema, Regular rate/rhythm, Normal S1 S2, No murmurs Capillary refill: <2 Seconds Gastrointestinal: Normal bowel sounds, Soft and benign, Non-distended, No tenderness Musculoskeletal: No swelling Integumentary: No rashes Neurological: Normal speech, Normal strength at 5/5 x4 extr Laboratory Data at Discharge: WBC 12.40 thou/uL (4.3-10.9) H 11/11/22 03:49 Hgb 9.6 g/dL (13.6-17.9) L 11/11/22 03:49 Hct 28.8 % (39.6-49.0) L 11/11/22 03:49 Plt Count 259 thou/uL (152-406) 11/11/22 03:49 PT 11.9 SECONDS (9.5-12.5) 11/09/22 12:50 INR 1.08 11/09/22 12:50 Sodium 141 mEq/L (136-145) 11/11/22 03:49 Potassium 4.9 mEq/L (3.5-5.1) 11/11/22 03:49 BUN 41 mg/dL (7-18) H 11/11/22 03:49 Creatinine 2.35 mg/dL (0.70-1.30) H 11/11/22 03:49 Glucose 160 mg/dL (74-106) H 11/11/22 03:49 Phosphorus 3.4 mg/dL (2.5-4.9) 11/11/22 03:49 Magnesium 1.9 mg/dL (1.6-2.4) 11/10/22 03:37 Total Bilirubin 0.3 mg/dL (0.2-1.0) 11/09/22 12:50 AST 16 U/L (15-37) 11/09/22 12:50 ALT 18 U/L (16-61) 11/09/22 12:50 Alkaline Phosphatase 95 U/L (45-117) 11/09/22 12:50 Home Medications: Amlodipine Besylate 1 tab PO DAILY 11/10/22 Tamsulosin HCl [Flomax] 1 tab PO DAILY 11/10/22 allopurinoL [Allopurinol] 1 tab PO DAILY 11/10/22 Sodium Bicarbonate 650 mg PO DAILY #30 tab 11/11/22 New Medications: Sodium Bicarbonate 650 mg PO DAILY #30 tab Physician Discharge Instructions: Please call Dr. Yates's office KARINA to discuss restarting Farxiga if your blood sugar stay consistently above 200. Please follow up with Dr. Yates within 1 week to restart some of your medications discontinued on discharge from the hospital if needed. Diet: ADA Activity: Ad lauren Followup: Ulysses Yates DO [ACTIVE - CAN ADMIT] - 1 Week Kerri Diamond DO [Primary Care Provider] - 1-2 Weeks Time spent managing pt's care (in minutes): 33
--- NOTE | 2022-11-13 17:59 | EKG ---
Test Date: 2022-11-09 Test Time: 13:11:07 Supervisor Color Paste Mixing: PAPA MEASUREMENT RESULTS: Intervals: Rate: 60 [place]: 216 QRSD: 96 QT: 390 QTc: 390 [place]: P: 37 [place]: 216 QRS: -15 T: 58 INTERPRETIVE STATEMENTS: Sinus rhythm with 1st degree AV block Anterior infarct, age undetermined Abnormal ECG Compared to ECG 06/20/2012 22:02:33 First degree AV block now present Myocardial infarct finding still present Electronically Signed On 11-13-22 17:53:00 CDT by Aden Perez
== END 2022-11-11 11:38 | disposition home or self-care (01) | DRG 683 ==
LOC: ER 12:13 → ERHOLD 16:19 → 4TH 17:34
PROVIDERS: ADMIT Internal Medicine; ATTEND Internal Medicine
DX: N17.0 Acute kidney failure with tubular necrosis (principal); E87.20 Acidosis, unspecified; E87.5 Hyperkalemia; E11.22 Type 2 diabetes mellitus with diabetic chronic kidney disease; I12.9 Hypertensive chronic kidney disease with stage 1 through stage 4 chronic kidney disease, or unspecified chronic kidney disease; N18.5 Chronic kidney disease, stage 5; I95.9 Hypotension, unspecified; N40.0 Benign prostatic hyperplasia without lower urinary tract symptoms; Z79.899 Other long term (current) drug therapy
CPT/HCPCS: 36415; 71045; 74176; 80048; 80069; 80076; 81001; 82550; 82947; 83735; 83880; 84100; 84132; 84156; 84484; 85025; 85610; 93005; 96365; 96375; 99285; J0610; J1644; J1815; J7040; J7613

== ENCOUNTER 2023-04-05 12:21 | Inpatient (IN) | payer OTHER ==
[2023-04-05 14:15] LABS: Absolute Lymphocytes (CBC) 1.8 K/uL (0.7-4.9); Hematocrit 33.4 % (39.6-49.0); Lymphocytes % 13.7 % (15.3-44.8); MPV 7.3 fL (7.6-11.3); Platelets 236 thou/uL (152-406); RBC Red Blood Cell Count 3.93 M/uL (4.33-5.43)
[2023-04-05 14:46] LABS: Potassium 6.8 mEq/L (3.5-5.1)
[2023-04-05] MEDS ORDERED: INSULIN REGULAR (HUMAN) 100 UNIT/ML ONE (15:43)
[2023-04-05] MEDS ORDERED: CALCIUM GLUCONATE 1 GM IVPB 1 GM/50 ML BAG IV ONE (15:43)
[2023-04-05] MEDS ORDERED: D5W 250 ML IV ONE (15:44)
--- NOTE | 2023-04-05 16:15 | ER ---
Nurse's Notes [facility] Name: Sergo Quinones Age: 67 yrs Sex: Male : 1955 Arrival Date: 04/05/2023 Time: 12:21 Bed 19 Private MD: Kerri Diamond Diagnosis: Hyperkalemia;Anemia, unspecified Presentation: 04/05 12:44 Chief complaint: Patient states: I had blood work done and the doctors office called kd3 and told me i need to go to the ER. I am not sure why i am here. They did not tell me what was wrong. I feel perfectly fine. Coronavirus screen: Vaccine status: Patient reports receiving the 2nd dose of the covid vaccine. Ebola Screen: No symptoms or risks identified at this time. Initial Sepsis Screen: Does the patient meet any 2 criteria? No. Patient's initial sepsis screen is negative. Does the patient have a suspected source of infection? No. Patient's initial sepsis screen is negative. Risk Assessment: Do you want to hurt yourself or someone else? Patient reports no desire to harm self or others. Onset of symptoms was April 05, 2023. 12:44 Method Of Arrival: Ambulatory kd3 12:44 Acuity: FITO 3 kd3 15:02 Acuity: FITO 2 iw Triage Assessment: 12:46 General: Appears in no apparent distress. Behavior is calm, cooperative. Pain: Denies kd3 pain. Historical: - PMHx: 12:46 diabetes mellitus; Hypercholesterolemia; Hypertensive disorder; kd3 - PSHx: 12:46 back; leg; Shoulder; kd3 - Immunization history:: Adult Immunizations up to date. - Social history:: Smoking status: Patient reports use of chewing tobacco. Screenin:24 [facility] ED Fall Risk Assessment (Adult) History of falling in the last 3 months, tm6 including since admission No falls in past 3 months (0 pts). Abuse screen: Denies threats or abuse. Denies injuries from another. Nutritional screening: No deficits noted. Tuberculosis screening: No symptoms or risk factors identified. Assessment: 15:42 General: Appears in no apparent distress. Behavior is calm, cooperative, appropriate tm6 for age. Pain: Denies pain. Neuro: No deficits noted. Level of Consciousness is awake, alert, obeys commands, Oriented to person, place, time, situation. Cardiovascular: Capillary refill < 3 seconds Patient's skin is warm and dry. Respiratory: Airway is patent Respiratory effort is even, unlabored, Respiratory pattern is regular, symmetrical. GI: Abdomen is round non-distended. : No signs and/or symptoms were reported regarding the genitourinary system. EENT: No signs and/or symptoms were reported regarding the EENT system. Derm: No signs and/or symptoms reported regarding the dermatologic system. 18:04 Reassessment: Patient appears in no apparent distress at this time. tm6 18:33 Reassessment: Patient appears in no apparent distress at this time. tm6 Vital Signs: 12:44 BP 122 / 75; Pulse 65; Resp 16; Temp 98.2(TE); Pulse Ox 100% ; Weight 78.02 kg; Height kd3 5 ft. 9 in. ; 16:22 BP 166 / 85; Pulse 61; Resp 19; Pulse Ox 100% ; tm6 18:04 BP 145 / 82; Pulse 85; Resp 18; Pulse Ox 100% on R/A; tm6 18:32 BP 156 / 81; Pulse 65; Pulse Ox 100% on R/A; tm6 19:21 BP 138 / 71; Pulse 59; Resp 17; Pulse Ox 100% ; vc1 21:00 BP 138 / 69; Pulse 65; Resp 16; Pulse Ox 100% ; vc1 22:00 BP 149 / 77; Pulse 60; Resp 21; Pulse Ox 100% on R/A; vc1 23:00 BP 135 / 62; Pulse 59; Resp 16; Pulse Ox 100% ; vc1 12:44 Body Mass Index 25.40 (78.02 kg, 175.26 cm) kd3 ED Course: 12:23 Patient arrived in ED. mr 12:23 Kerri Diamond DO is Private Physician. mr 12:46 William Ludwig DO is Attending Physician. ms3 12:46 Triage completed. kd3 12:46 Arm band placed on right wrist. kd3 14:06 Initial lab(s) drawn, by me, sent to lab. Inserted saline lock: 20 gauge in left wrist, iw using aseptic technique. Blood collected. 14:10 BMP Sent. iw 14:11 CBC with Diff Sent. iw 15:41 Ellen Mclean, RONEY is Primary Nurse. tm6 16:24 Patient has correct armband on for positive identification. Bed in low position. Call tm6 light in reach. Side rails up X2. Provided Education on: need for transfer. Client placed on continuous cardiac and pulse oximetry monitoring. NIBP monitoring applied. nuclear monitoring technician on. Door closed. Noise minimized. Warm blanket given. 16:24 No provider procedures requiring assistance completed. tm6 19:05 Report received from RONEY Russ. vc1 19:35 Initiated transfer to [facility] and Krishna, both denied due to capacity. wm 19:57 Initiated transfer to [facility] [place]sen, spoke with Neo. wm 21:17 John Albert MD is Hospitalizing Provider. ms3 22:03 Renal Ultrasound-Complete In Process Unspecified. EDMS 22:53 Renal Ultrasound-Complete In Process Unspecified. EDMS 23:38 Patient admitted, IV remains in place. [facility] 04/06 07:06 Primary Nurse role handed off by Ellen Mclean, RONEY [facility] 07:06 Shon Ferrell, RONEY is Primary Nurse. [facility] Administered Medications: 04/05 15:41 Drug: D50W IVP 50 ml IVP once; (1 amp) Route: IVP; Site: left antecubital; 6 04/06 15:45 Follow up: Response: No adverse reaction [facility] 04/05 15:50 Drug: Calcium Gluconate IVPB 1 grams IVPB once over 60 mins; (mix in NS 100 mL) Route: 6 IVPB; Infused Over: 60 mins; Site: left antecubital; 04/06 15:46 Follow up: Response: No adverse reaction; IV Status: Completed infusion; IV Intake: ll1 100ml 04/05 15:50 Drug: Insulin Regular Human IVP 10 units IVP once {Co-Signature: ld1 (Petrona Ludwig 6 RN).} Route: IVP; Site: left antecubital; 04/06 15:45 Follow up: Response: No adverse reaction [facility] 04/05 17:26 Drug: D5-NS IV 1000 ml IV at 100 ml/hr continuous Route: IV; Rate: 100 ml/hr; Site: [facility] left antecubital; 04/06 15:45 Follow up: IV Status: Completed infusion; IV Intake: 1000ml [facility] 04/05 18:04 Drug: Lokelma Powder 10 grams PO once Route: PO; tm6 11/10 15:45 Follow up: Response: No adverse reaction 1 04/05 23:00 Drug: Furosemide IVP 40 mg IVP once; give over 2 minutes Route: IVP; Site: left wrist; vc1 04/06 15:43 Follow up: Response: No adverse reaction 1 04/05 23:36 Drug: NS 0.9% IV 1000 ml IV at 1000 ml once Route: IV; Rate: 1000 ml; Site: left wrist; vc1 04/06 15:44 Follow up: IV Status: Completed infusion; IV Intake: 1000ml ll1 Medication: 04/05 16:27 VIS not applicable for this client. tm6 Intake: 04/06 15:44 IV: 1000ml; Total: 1000ml. ll1 15:45 IV: 1000ml; Total: 2000ml. ll1 15:46 IV: 100ml; Total: 2100ml. ll1 Outcome: 04/05 16:15 ER care complete, transfer ordered by MD. ms3 16:34 ER care complete, transfer ordered by MD. ms3 21:18 Decision to Hospitalize by Provider. ms3 23:38 Admitted to ER Hold. Please see [facility] for further documentation. vc1 23:38 Condition: good 23:38 Instructed on the need for admit, 04/06 15:42 Patient left the ED. 1 Signatures: Dispatcher [employer] EDMS Adwoa Littlejohn, Reg Reg Jazmyn Steen RN Shon Gamez RN RN ll1 William Ludwig DO DO ms3 Kusum Godfrey Elizabeth Delgado RN RN kd3 Rain Cuellar RN RN vc1 Ellen Mclean RN RN 6 Petrona Ludwig RN ld1 Corrections: (The following items were deleted from the chart) 04/05 19:46 19:38 Initiated wm wm 23:37 23:00 Furosemide IVP 40 mg IVP in right antecubital vc1 vc1 23:38 23:36 NS 0.9% IV 1000 ml IV at 1000 ml in left antecubital vc1 vc1
--- NOTE | 2023-04-05 16:15 | EDPHYS ---
Physician Documentation [facility] Name: Sergo Quinones Age: 67 yrs Sex: Male : 1955 Arrival Date: 04/05/2023 Time: 12:21 Bed 19 Private MD: Kerri Diamond ED Physician William Ludwig HPI: 04/05 14:14 This 67 yrs old Male presents to ER via Ambulatory with complaints of Abnormal Lab ms3 Results. 14:14 67-year-old male with past medical history of diabetes, hypercholesterolemia, ms3 hypertension presents to the emergency department for abnormal lab results that were drawn today at Dr. Alvarado's office. Patient is unaware of which lab was abnormal. Patient denies any pain. Patient denies any alleviating or inciting factors. Historical: - PMHx: 12:46 diabetes mellitus; Hypercholesterolemia; Hypertensive disorder; kd3 - PSHx: 12:46 back; leg; Shoulder; kd3 - Immunization history:: Adult Immunizations up to date. - Social history:: Smoking status: Patient reports use of chewing tobacco. ROS: 14:14 Constitutional: Negative for fever, and chills. Neck: Negative for injury, pain, and ms3 swelling, Cardiovascular: Negative for chest pain, and palpitations. Respiratory: Negative for shortness of breath, cough, wheezing, and pleuritic chest pain, Abdomen/GI: Negative for abdominal pain, nausea, vomiting, diarrhea, and constipation, Back: Negative for injury and pain, MS/Extremity: Negative for injury and deformity, Neuro: Negative for headache, weakness, numbness, tingling. Exam: 14:14 Constitutional: This is a well developed, well nourished patient who is awake, alert, ms3 and in no acute distress. Head/Face: Normocephalic, atraumatic. ENT: Nares patent. No nasal discharge, no septal abnormalities noted. Tympanic membranes are normal and external auditory canals are clear. Oropharynx with no redness, swelling, or masses, exudates, or evidence of obstruction, uvula midline. Mucous membranes moist. Neck: Trachea midline, no cervical lymphadenopathy. Supple, full range of motion without nuchal rigidity, or vertebral point tenderness. No Meningismus. Chest/axilla: Normal chest wall appearance and motion. Nontender with no deformity. Cardiovascular: Regular rate and rhythm with a normal S1 and S2. No gallops, murmurs, or rubs. Normal PMI, no JVD. No pulse deficits. Respiratory: Lungs have equal breath sounds bilaterally, clear to auscultation and percussion. No rales, rhonchi or wheezes noted. No increased work of breathing, no retractions or nasal flaring. Abdomen/GI: Soft, non-tender, with normal bowel sounds. No distension or tympany. No guarding or rebound. No evidence of tenderness throughout. Skin: Warm, dry with normal turgor. Normal color with no rashes, no lesions, and no evidence of cellulitis. 21:39 ECG was reviewed by the Attending Physician. ms3 Vital Signs: 12:44 BP 122 / 75; Pulse 65; Resp 16; Temp 98.2(TE); Pulse Ox 100% ; Weight 78.02 kg; Height kd3 5 ft. 9 in. ; 16:22 BP 166 / 85; Pulse 61; Resp 19; Pulse Ox 100% ; tm6 18:04 BP 145 / 82; Pulse 85; Resp 18; Pulse Ox 100% on R/A; tm6 18:32 BP 156 / 81; Pulse 65; Pulse Ox 100% on R/A; tm6 19:21 BP 138 / 71; Pulse 59; Resp 17; Pulse Ox 100% ; vc1 21:00 BP 138 / 69; Pulse 65; Resp 16; Pulse Ox 100% ; vc1 22:00 BP 149 / 77; Pulse 60; Resp 21; Pulse Ox 100% on R/A; vc1 23:00 BP 135 / 62; Pulse 59; Resp 16; Pulse Ox 100% ; vc1 12:44 Body Mass Index 25.40 (78.02 kg, 175.26 cm) kd3 MDM: 13:19 Patient medically screened. ms3 14:14 Differential Diagnosis Hyperkalemia versus kidney failure versus erroneous lab. ms3 17:05 Data reviewed: vital signs, nurses notes, lab test result(s), EKG, radiologic studies, ms3 and as a result, I will Transfer patient. 17:05 Consideration of Admission/Observation We will transfer due to capacity. Management of ms3 patient was discussed with the following: Hospitalist: Discussed case with Dr. Noriega. He accepts patient to [facility]. I considered the following discharge prescriptions or medication management in the emergency department Medications were administered in the Emergency Department. See MAR. Independent interpretation of the following test(s) in the Emergency Department EKG: See my EKG interpretation above. Care significantly affected by the following chronic conditions: Diabetes, Hypertension. Counseling: I had a detailed discussion with the patient and/or guardian regarding the historical points, exam findings, and any diagnostic results supporting the discharge/admit diagnosis, lab results, radiology results, the need to transfer to another facility, [facility] at Capacity. ED course: Discussed necessity for transfer with patient. Patient understands agrees with plan. All questions were answered.. 21:33 ED course: Case discussed with Dr Alvarado and he would like patient to have 1 L NS ms3 bolus with 40 mg Lasix, renal US and 1/2NS with 1.5 amps sodium bicarb at 50 ml/hr started. Discussed case with Amrita Alarcon NP and discussed treatment plan. She will order 1/2NS wth 1.5 amps sodium bicarb.. 04/05 13:20 Order name: CBC with Diff; Complete Time: 14:45 ms3 04/05 13:20 Order name: BMP; Complete Time: 14:57 ms3 04/05 16:14 Order name: Glucose, Ancillary Testing; Complete Time: 16:16 EDMS 04/05 17:18 Order name: Glucose, Ancillary Testing; Complete Time: 19:24 EDMS 04/05 17:50 Order name: Glucose, Ancillary Testing; Complete Time: 19:24 EDMS 04/05 18:41 Order name: Glucose, Ancillary Testing; Complete Time: 19:24 EDMS 04/05 22:53 Order name: CBC with Automated Diff; Complete Time: 05:51 EDMS 04/05 22:53 Order name: Comprehensive Metabolic Panel; Complete Time: 05:51 EDMS 04/05 22:53 Order name: Lipid Profile EDMS 04/05 22:53 Order name: Lipid Profile; Complete Time: 05:51 EDMS 04/05 22:54 Order name: Basic Metabolic Panel EDMS 04/06 00:15 Order name: Glucose, Ancillary Testing; Complete Time: 05:51 EDMS 04/06 07:36 Order name: Glucose, Ancillary Testing EDMO 04/06 12:17 Order name: Glucose, Ancillary Testing EDMS 04/05 21:36 Order name: Renal Ultrasound-Complete EDMO 04/05 13:20 Order name: EKG; Complete Time: 13:20 ms3 04/05 22:53 Order name: CONS Physician Consult EDMO 04/05 22:53 Order name: Dietitian Consult EDMO 04/05 22:53 Order name: EKG Electrocardiogram EDMS 04/05 22:53 Order name: EKG Electrocardiogram EDMO 04/05 22:53 Order name: EKG Electrocardiogram EDMO 04/05 22:53 Order name: EKG Electrocardiogram EDMO 04/05 13:20 Order name: EKG - Nurse/Tech; Complete Time: 15:41 ms3 EC:39 Rate is 54 beats/min. Rhythm is regular. QRS [place] is Normal. SC interval is normal. QRS ms3 interval is normal. Clinical impression: Sinus bradycardia. Interpreted by me. Reviewed by me. Administered Medications: 15:41 Drug: D50W IVP 50 ml IVP once; (1 amp) Route: IVP; Site: left antecubital; [facility] 04/06 15:45 Follow up: Response: No adverse reaction [facility] 04/05 15:50 Drug: Calcium Gluconate IVPB 1 grams IVPB once over 60 mins; (mix in NS 100 mL) Route: [facility] IVPB; Infused Over: 60 mins; Site: left antecubital; 04/06 15:46 Follow up: Response: No adverse reaction; IV Status: Completed infusion; IV Intake: ll1 100ml 04/05 15:50 Drug: Insulin Regular Human IVP 10 units IVP once {Co-Signature: nicolas (Petrona Ludwig 6 RN).} Route: IVP; Site: left antecubital; 04/06 15:45 Follow up: Response: No adverse reaction [facility] 04/05 17:26 Drug: D5-NS IV 1000 ml IV at 100 ml/hr continuous Route: IV; Rate: 100 ml/hr; Site: [facility] left antecubital; 04/06 15:45 Follow up: IV Status: Completed infusion; IV Intake: 1000ml [facility] 04/05 18:04 Drug: Lokelma Powder 10 grams PO once Route: PO; [facility] 04/06 15:45 Follow up: Response: No adverse reaction [facility] 04/05 23:00 Drug: Furosemide IVP 40 mg IVP once; give over 2 minutes Route: IVP; Site: left wrist; vc1 04/06 15:43 Follow up: Response: No adverse reaction ll1 04/05 23:36 Drug: NS 0.9% IV 1000 ml IV at 1000 ml once Route: IV; Rate: 1000 ml; Site: left wrist; vc1 04/06 15:44 Follow up: IV Status: Completed infusion; IV Intake: 1000ml ll1 Disposition Summary: 04/05/23 21:18 Hospitalization Ordered Notes: Hospitalization Status: Inpatient Admission ms3 Provider: John Albert ms3 Condition: Stable(04/05/23 21:18) ms3 Problem: new(04/05/23 21:18) ms3 Symptoms: are unchanged(04/05/23 21:18) ms3 Bed/Room Type: Standard ms3 Location: Telemetry/MedSurg (Inpatient)(04/06/23 15:18) eb Room Assignment: [facility](04/06/23 15:18) eb Diagnosis - Hyperkalemia(04/05/23 21:18) ms3 - Anemia, unspecified(04/05/23 21:18) ms3 Forms: - Medication Reconciliation Form ms3 - SBAR form ms3 - Leadership Thank You Letter ms3 Critical care time excluding procedures: 04/05 17:05 Critical care time: Bedside Care: 30 minutes, Consultation: 5 minutes. Total time: 35 ms3 minutes Signatures: Dispatcher [employer] EDMS Espinoza [place], [employer]LLFISH MANAGER-Cla1 Sandra Hays, RN RN Dasha Cannon William Ludwig DO DO ms3 Elizabeth Delgado RN RN kd3 Rain Cuellar RN RN vc1 Ellen Mclean RN RN [id number] Shon Ferrell RN ll1 Petrona Ludwig RN ld1 Corrections: (The following items were deleted from the chart) 16:20 16:15 Dr Noriega ms3 tm6 16:20 16:15 Other Acute Care Facility ms3 tm6 16:20 16:15 Higher level of care ms3 tm6 16:20 16:15 Stable ms3 tm6 16:20 16:15 new ms3 tm6 16:20 16:15 are unchanged ms3 tm6 16:20 16:15 Hyperkalemia ms3 tm6 21:17 16:34 Dr Noriega ms3 ms3 21:17 16:34 Other Acute Care Facility ms3 ms3 21:17 16:34 Higher level of care ms3 ms3 21:17 16:34 Stable ms3 ms3 21:17 16:34 new ms3 ms3 21:17 16:34 are unchanged ms3 ms3 21:17 16:34 Hyperkalemia ms3 ms3 21:17 16:34 Anemia, unspecified ms3 ms3 21:17 16:34 Essential (primary) hypertension ms3 ms3 22:58 22:54 Renal Ultrasound-Complete ordered. EDMS EDMS 23:53 21:18 Intensive Care Unit ms3 cg 23:53 21:18 ms3 cg 04/06 15:18 04/05 23:53 [facility] ER HOLD cg eb 04/06 15:18 04/05 23:53 ERHOLD- cg eb
[2023-04-05] MEDS ORDERED: D5 0.9 NS 1,000 ML IV ONE (17:23)
[2023-04-05] MEDS ORDERED: SODIUM ZIRCONIUM CYCLOSILICATE 10 GM/PKT PO ONE (18:00)
--- NOTE | 2023-04-05 22:51 | RAD REPORT ---
EXAM DESCRIPTION: US - Renal Ultrasound-Complete - 04/05/2023 10:01 pm CLINICAL HISTORY: hyperkalemia, ARF COMPARISON: Abdomen Pelvis Wo Contrast dated 02/07/2023 TECHNIQUE: Sonographic grayscale and color flow images of the kidneys and bladder were obtained. FINDINGS: Both kidneys are normal in size. Bilateral cortical thinning and poor corticomedullary dif ferentiation. The right kidney measures 10.8 cm in length. No hydronephrosis, focal mass or perinephric fluid. The left kidney measures 11 cm in length. No hydronephrosis, focal mass or perinephric fluid. Bilateral renal cysts, the largest on the right is at the upper to mid pole measuring 3.7 cm in great est dimension. The largest on the left is at the superior pole measuring 4.7 cm in greatest dimension . No solid components or evidence of complexity. The urinary bladder is incompletely distended without gross abnormality seen. IMPRESSION: Bilateral renal cortical thinning and poor corticomedullary differentiation suggestive o f medical renal disease. Bilateral benign-appearing renal cysts.
[2023-04-05] MEDS ORDERED: FUROSEMIDE 20 MG/ 2ML VIAL ONE (22:56)
[2023-04-05] MEDS ORDERED: NA CHLORIDE 0.9% 1,000 ML ONE (22:56)
[2023-04-05] MEDS: ALBUTEROL 2.5 MG/3 ML NEB SOL NEB SCH (23:00)
--- NOTE | 2023-04-05 23:54 | P.HP ---
Certification for Inpatient Patient admitted to: Inpatient With expected LOS: <2 Midnights Patient will require the following post-hospital care: None Practitioner: I am a practitioner with admitting privileges, knowledge of patient current condition, hospital course, and medical plan of care. Services: Services provided to patient in accordance with Admission requirements found in Title 42 Section 412.3 of the Code of Federal Regulations Patient History Date of Service: 04/06/23 Primary Care Provider: seeing Dr. Yates changed to Dr. Scott, Sees Rafael Liriano Reason for admission: Hyperkalemia History of Present Illness: Pt states he was seeing Dr. Yates and was noted to have hyperkalemia. Lisinopril and Amlodipine discontinued. Pt states he has changed his diet, lost 30lbs and was able to stop spironolacone an Farxiga under care of Dr. Scott. Pt states he has been feeling well but had labwork today and was told to present to the ED for a potassium close to 7. Potassium 6.8 in ED. VSS, no EKG changes or complaints. Pt states that he did in the past have a problem with urinary retention but has not had any symptoms of this lately. He was recently diagnosed with prostate cancer and is awaiting radiation therapy with Dr. Hall. Pt's current medications include Clonidine, Rosuvastatin, Allopurinol, and Glimepiride Allergies No Known Allergies Allergy (Unverified 06/20/12 21:10) Home medications list reviewed: Yes Home Medications: Amlodipine Besylate 1 tab PO DAILY 11/10/22 Tamsulosin HCl [Flomax] 1 tab PO DAILY 11/10/22 allopurinoL [Allopurinol] 1 tab PO DAILY 11/10/22 Sodium Bicarbonate 650 mg PO DAILY #30 tab 11/11/22 - Past Medical/Surgical History Has patient received pneumonia vaccine in the past: No Diabetic: Yes -: Essential hypertension -: Diabetes mellitus type -: BPH -: Prostate Ca - Family History Mother -: Other (see notes) - Social History Smoking Status: Never smoker Alcohol use: No CD- Drugs: No Caffeine use: No Place of Residence: Home Review of Systems 10-point ROS is otherwise unremarkable Physical Examination - Vital Signs Blood Pressure: 153/74 Pulse: 84 Respirations: 18 Pulse Ox (%): 100 - Physical Exam General: Alert, In no apparent distress HEENT: Atraumatic, Normocephalic, PERRLA Neck: Supple, 2+ carotid pulse no bruit Respiratory: Clear to auscultation bilaterally, Normal air movement Cardiovascular: No edema, Normal pulses, Other (EKG sinus brenda at 54) Capillary refill: <2 Seconds Gastrointestinal: Normal bowel sounds, Hypoactive, Soft and benign Musculoskeletal: No clubbing, No swelling, No contractures Integumentary: No rashes, Other (scattered superficial ecchymosis to bilateral forearms) Neurological: Normal speech Lymphatics: No axilla or inguinal lymphadenopathy Urinary: Other (no retention, 700ml clear urine at bedside urinal) External genitalia: Deferred Rectal: Deferred - Studies Laboratory Data (last 24 hrs) 04/05/23 04/05/23 14:05 14:05 WBC 12.90 H Hgb 11.1 L Hct 33.4 L Plt Count 236 Sodium 134 L Potassium 6.8 H* BUN 60 H Creatinine 3.29 H Glucose 128 H Assessment and Plan - Problems (Diagnosis) (1) Acute kidney injury Current Visit: Yes Status: Acute Plan: .45 NS with 75meq NaHCO3 at 50ml/hr, gentle fluid resuscitation. Serial lab evaluation. Renal US. Consult Dr. Scott (2) Hyperkalemia Current Visit: Yes Status: Acute Plan: Lokelma po given x 1 in ED. Follow lab levels, urine output. Low potassium diet, gentle hydration Discharge Plan: Home Plan to discharge in: 48 Hours - Advance Directives Does patient have a Living Will: No Does patient have a Durable POA for Healthcare: No - Code Status/Comfort Care Code Status: Full Code Critical Care: Yes Time Spent Managing Pts Care (In Minutes): 60
[2023-04-06] MEDS: ALBUTEROL 2.5 MG/3 ML NEB SOL NEB SCH ×2 (01:30→02:00)
[2023-04-06] MEDS ORDERED: NACHLORIDE 0.45% 1,000 ML IV ONE (01:58)
[2023-04-06] MEDS: NACHLORIDE 0.45% 1,000 ML with NA BICARB 8.4% 75 MEQ IV SCH ×4 (01:58→20:30)
[2023-04-06] MEDS ORDERED: ALBUTEROL 2.5 MG/3 ML NEB SOL NEB ONE (02:00)
[2023-04-06] MEDS ORDERED: SODIUM BICARB 50 MEQ/50ML VIAL ONE (02:24)
[2023-04-06 02:56] VITALS: BMI 25.4
[2023-04-06 04:11] LABS: Hematocrit 30.1 % (39.6-49.0); Lymphocytes % 19.3 % (15.3-44.8); MCV 84.6 fL (80-100); MPV 7.2 fL (7.6-11.3); Platelets 196 thou/uL (152-406); RBC Red Blood Cell Count 3.55 M/uL (4.33-5.43)
[2023-04-06 04:32] LABS: Albumin 3.2 g/dL (3.4-5.0); Bilirubin Total 0.2 mg/dL (0.2-1.0); Potassium 5.1 mEq/L (3.5-5.1); Protein, Total 6.5 g/dL (6.4-8.2)
[2023-04-06] MEDS: INSULIN REGULAR (HUMAN) 100 UNIT/ML SQ SCH ×4 (07:30→20:40)
[2023-04-06] MEDS ORDERED: INFLUENZA VACCINE (for 6+ mo) 0.5 ML DOSE IMVAC ONE (08:00)
[2023-04-06] MEDS: ENOXAPARIN 30 MG/0.3 ML SQ SCH (09:00)
[2023-04-06] MEDS ORDERED: ENOXAPARIN 30 MG/0.3 ML SQ ONE (09:08)
--- NOTE | 2023-04-06 12:06 | P.PN ---
Date of Service: 04/06/23 Subjective: no acute events overnight feeling ok, no worsening/new problems tolerating diet urinating without issue PVR <50ml ROS: 10 point ROS as noted above, otherwise negative Physical Exam: GEN: Alert, oriented, NAD HEENT: Normal conjunctiva, sclera anicteric CV: Regular rate and rhythm, no edema Pulm: Nonlabored respirations on room air, clear bilaterally ABD: Soft, nontender, nondistended Integumentary: b/l forearms with scattered superficial ecchymosis Neuro: Normal speech, normal affect vitals reviewed Problem List: HEMANT, on CKD4 Hyperkalemia Hypertension NIDDM2 BPH h/o Prostate Cancer HEMANT, on CKD4 Hyperkalemia renal u/s (04/05): b/l renal cortical thinning and poor corticomedullary differentiation suggestive of medical renal disease. b/l benign-appearing renal cysts. Potassium 6.8 on admission Lokelma po given x 1 in ED Nephrology consulted continue IV sodium bicarb 50ml/hr reports recent Cr ~4 in last month PVR 04/06: 37 ml Continue to monitor renal function CR improving, Potassium improving Daily labs NIDDM2 ACHS Accu-Chek, SSI Hypertension BPH h/o Prostate Cancer confirm home medications, restart as appropriate VTE: Lovenox Code: Full Dispo: Home, possible tomorrow Pending further improvement
[2023-04-06] MEDS: cloNIDine HCL 0.1 MG TAB PO SCH ×2 (12:23→20:39)
--- NOTE | 2023-04-06 14:30 | P.CNS ---
Date of Consult: 04/06/23 Reason for Consult: renal failure, hyperkalemia Requesting Physician: John Albert Primary Care Provider: seeing Dr. Yates changed to Dr. Scott, Sees Rafael Liriano Chief Complaint: Hyperkalemia History of Present Illness: 67M w/ PMHx of CKD4 2/2 DN, & prostate cancer, who had hyperkalemia, admitted for medical mngt. He reports eating [employer]. He had serum K 6.8 on adm. He received IVF & lokelma. Serum K improved to 5.1 today. SCr 3.3 on adm, at 3.1 today. SCr was 3.5 in Jan 2023, then at 4.0 in Feb 2023. Allergies No Known Allergies Allergy (Unverified 06/20/12 21:10) Home Medications: allopurinoL [Allopurinol] 1 tab PO DAILY 11/10/22 Glimepiride 1 tab PO PRN PRN 04/06/23 Rosuvastatin Calcium 1 tab PO DAILY 04/06/23 cloNIDine HCL [Catapres*] 0.3 mg PO BID 04/06/23 - Past Medical/Surgical History Diabetic: Yes -: Essential hypertension -: Diabetes mellitus type -: BPH -: Prostate Ca - Family History Mother Medical History: Other (see notes) - Social History Alcohol use: No CD- Drugs: No Caffeine use: No Place of Residence: Home Review of Systems General: Unremarkable Eyes: Unremarkable ENT: Unremarkable Respiratory: Unremarkable Cardiovascular: Unremarkable Gastrointestinal: Unremarkable Genitourinary: Unremarkable Musculoskeletal: Unremarkable Integumentary: Unremarkable Neurological: Unremarkable Lymphatics: Unremarkable Physical Examination Temp Pulse Resp BP Pulse Ox 98.5 F 70 18 164/83 H 100 04/06/23 11:52 04/06/23 12:23 04/06/23 11:52 04/06/23 12:23 04/06/23 11:52 General: Other (appears his stated age) HEENT: Atraumatic, Normocephalic Neck: Supple Respiratory: Other (symmetric chest expansion) Cardiovascular: No rubs, No murmurs Gastrointestinal: No rebound Musculoskeletal: No clubbing Integumentary: No warmth Neurological: Normal tone Urinary: Other (no bladder distention) External genitalia: Deferred Rectal: Deferred Laboratory Data (last 24 hrs) 04/05/23 04/05/23 22:52 14:05 Sodium Cancelled 134 L Potassium Cancelled 6.8 H* BUN Cancelled 60 H Creatinine Cancelled 3.29 H Glucose Cancelled 128 H Conclusions/Impression: # HEMANT likely 2/2 prerenal state SCr 3.3 on adm, improved to 3.1 [place] po fluid intake # CKD4 2/2 DN Monitor renal panel # Hyperkalemia 2/2 renal failure + increased K dietary intake Lokelma + bicitra today Advised on avoiding high K foods Resume veltassa po daily as outpt # Acidosis Bicitra today # Hx of prostate cancer Hx of obstructive uropathy 2/2 prostate ca F/u w/ Urology # Htn Cont current med regimen Avoid ACEI or ARB or MRA # HLD Statin # DM2 Mngt per primary team
[2023-04-06] MEDS ORDERED: SODIUM ZIRCONIUM CYCLOSILICATE 10 GM/PKT PO ONE (16:00)
[2023-04-06] MEDS: NA CIT/CITRIC AC 30 ML ORAL UDC PO SCH ×2 (16:24→20:39)
[2023-04-06 22:05] LABS: Magnesium 2.1 mg/dL (1.6-2.4); Potassium 4.9 mEq/L (3.5-5.1)
[2023-04-07] MEDS: NACHLORIDE 0.45% 1,000 ML with NA BICARB 8.4% 75 MEQ IV SCH ×2 (00:33)
[2023-04-07 04:28] LABS: Magnesium 2.1 mg/dL (1.6-2.4); Potassium 4.8 mEq/L (3.5-5.1)
[2023-04-07] MEDS: INSULIN REGULAR (HUMAN) 100 UNIT/ML SQ SCH (07:30)
--- NOTE | 2023-04-07 08:35 | P.DS ---
Admission Date: 04/05/23 Discharge Date: 04/07/23 Primary Care Provider: seeing Dr. Yates changed to Dr. Scott, Sees Rafael Liriano Disposition: ROUTINE DISCHARGE Discharge Condition: GOOD Reason for Admission: Hyperkalemia Consultations: Nephrology - Dr. Amezcua Brief History of Present Illness: Pt states he was seeing Dr. Yates and was noted to have hyperkalemia. Lisinopril and Amlodipine discontinued. Pt states he has changed his diet, lost 30lbs and was able to stop spironolacone an Farxiga under care of Dr. Scott. Pt states he has been feeling well but had labwork today and was told to present to the ED for a potassium close to 7. Potassium 6.8 in ED. VSS, no EKG changes or complaints. Pt states that he did in the past have a problem with urinary re tention but has not had any symptoms of this lately. He was recently diagnosed with prostate cancer and is awaiting radiation therapy with Dr. Hall. Pt's current medications include Clonidine, Rosuvastatin, Allopurinol, and Glimepiride Hospital Course: Problem List: HEMANT on CKD4, improved Hyperkalemia, resolved Hypertension NIDDM2 BPH h/o Prostate Cancer Patient presented to the ED after outpatient lab work noted hyperkalemia (close to 7 reportedly). 6.8 in the ED. Renal ultrasound noted renal cortical thinning and poor corticomedullary differentiation suggesting medical renal disease. Nephrology was consulted. Patient was given Lokelma in the ED and a 2nd dose on 04/06, along with sodium bicarb and labs improved. Creatinine near baseline on discharge. Hyperkalemia resolved. Nephrology recommended no further treatment/evaluation indicated in hospital and stable for discharge home. Patients conference specialist prescribed veltassa to take at home. Patient was feeling better, labs improved and was deemed stable for discharge. Recommend repeat blood work this following Sunday/Sunday (within 1 week) to monitor potassium/renal function. Potassium on discharge: 4.8 (normal range: 3.5-5.1) Creatinine on discharge: 2.66 (normal range: 0.70-1.30) Medication: no change in medications beyond Veltassa prescribed by your conference specialist. Continue other home medications as previously prescribed. Follow up: PCP 3-5 days Nephrology 1-2 weeks blood work - BMP and Magnesium to be done Sunday/Sunday at [facility] Physical Exam: GEN: Alert, oriented, NAD HEENT: Normal conjunctiva, sclera anicteric CV: Regular rate and rhythm, no edema Pulm: Nonlabored respirations on room air, clear bilaterally ABD: Soft, nontender, nondistended Integumentary: b/l forearms with scattered superficial ecchymosis Neuro: Normal speech, normal affect Vital Signs/Physical Exam: Temp Pulse Resp BP Pulse Ox 97.4 F 61 14 152/78 H 100 04/07/23 04:00 04/07/23 04:00 04/07/23 04:00 04/07/23 04:00 04/07/23 04:00 Laboratory Data at Discharge: WBC 10.60 thou/uL (4.3-10.9) 04/06/23 03:51 Hgb 10.2 g/dL (13.6-17.9) L D 04/06/23 03:51 Hct 30.1 % (39.6-49.0) L 04/06/23 03:51 Plt Count 196 thou/uL (152-406) 04/06/23 03:51 Sodium 142 mEq/L (136-145) 04/07/23 03:53 Potassium 4.8 mEq/L (3.5-5.1) 04/07/23 03:53 BUN 47 mg/dL (7-18) H 04/07/23 03:53 Creatinine 2.66 mg/dL (0.70-1.30) H 04/07/23 03:53 Glucose 105 mg/dL (74-106) 04/07/23 03:53 Magnesium 2.1 mg/dL (1.6-2.4) 04/07/23 03:53 Total Bilirubin 0.2 mg/dL (0.2-1.0) 04/06/23 03:51 AST 20 U/L (15-37) 04/06/23 03:51 ALT 18 U/L (16-61) 04/06/23 03:51 Alkaline Phosphatase 91 U/L (45-117) 04/06/23 03:51 Triglycerides 99 mg/dL (<150) 04/06/23 03:51 Cholesterol 104 mg/dL (<200) 04/06/23 03:51 HDL Cholesterol 43 mg/dL (40-60) 04/06/23 03:51 Cholesterol/HDL Ratio 2.42 04/06/23 03:51 Home Medications: RX: allopurinoL [Allopurinol] 1 tab PO DAILY 11/10/22 RX: Glimepiride 1 tab PO PRN PRN 04/06/23 RX: Rosuvastatin Calcium 1 tab PO DAILY 04/06/23 RX: cloNIDine HCL [Catapres*] 0.3 mg PO BID 04/06/23 Physician Discharge Instructions: Patient presented to the ED after outpatient lab work noted hyperkalemia (close to 7 reportedly). 6.8 in the ED. Renal ultrasound noted renal cortical thinning and poor corticomedullary differentiation suggesting medical renal disease. Nephrology was consulted. Patient was given Lokelma in the ED and a 2nd dose on 04/06, along with sodium bicarb and labs improved. Creatinine near baseline on discharge. Hyperkalemia resolved. Nephrology recommended no further treatment/evaluation indicated in hospital and stable for discharge home. Patients conference specialist prescribed veltassa to take at home. Patient was feeling better, labs improved and was deemed stable for discharge. Recommend repeat blood work this following Sunday/Sunday (within 1 week) to monitor potassium/renal function. Potassium on discharge: 4.8 (normal range: 3.5-5.1) Creatinine on discharge: 2.66 (normal range: 0.70-1.30) Medication: no change in medications beyond Veltassa prescribed by your conference specialist. Continue other home medications as previously prescribed. Follow up: PCP 3-5 days Nephrology 1-2 weeks blood work - BMP and Magnesium to be done Sunday/Sunday at [facility] Followup: Kerri Diamond DO [Primary Care Provider] - Time spent managing pt's care (in minutes): 45
[2023-04-07] MEDS: ENOXAPARIN 30 MG/0.3 ML SQ SCH (08:49)
[2023-04-07 08:55] VITALS: BP 171/87; TEMP 97.2; O2SAT 97
[2023-04-07] MEDS ORDERED: CLONIDINE HCL 0.3 MG TAB PO SCH (09:00)
--- NOTE | 2023-04-07 14:09 | EKG ---
Test Date: 2023-04-06 Test Time: 10:53:21 Front Tender: KATIA MEASUREMENT RESULTS: Intervals: Rate: 67 TN: 206 QRSD: 90 QT: 374 QTc: 395 Jackson: P: 47 TN: 206 QRS: 69 T: 68 INTERPRETIVE STATEMENTS: Normal sinus rhythm Normal ECG Compared to ECG 04/05/2023 16:37:12 Sinus bradycardia no longer present First degree AV block no longer present Electronically Signed On 04-07-23 14:07:05 OBGYN HOSPITALIST PHYSICIAN by Aden Perez
--- NOTE | 2023-04-07 14:12 | EKG ---
Test Date: 2023-04-05 Test Time: 16:37:12 Cnc Operator Machinist: Vincent ORDAZ MEASUREMENT RESULTS: Intervals: Rate: 54 UT: 224 QRSD: 88 QT: 402 QTc: 381 Muse: P: 41 UT: 224 QRS: 28 T: 54 INTERPRETIVE STATEMENTS: Sinus bradycardia with 1st degree AV block Otherwise normal ECG Compared to ECG 11/09/2022 13:11:07 Sinus rhythm no longer present Myocardial infarct finding no longer present Electronically Signed On 04-07-23 14:07:58 SERVICE PORTER by Aden Perez
--- NOTE | 2023-04-07 23:43 | PN ---
Date of Progress Note: 04/07/2023 Chief Complaint: Renal failure, hyperkalemia. History Of Present Illness: The patient is a 67-year-old man with history of diabetes mellitus and _ chronic kidney disease stage 4, prostate cancer, who had hyperkalemia, admitted for medical management. He reported eating [employer]. His serum creatinine was 6.8 on admission. He rec eived IV fluids, Lokelma. . He has history of vooqw-ls-uthizdy kidney injury. Serum creat inine on admission was 3.3 and yesterday was 2.1. Previous baseline in January showed creatinine o f 3.5 as well as in February, creatinine was up to 4.0. Review of Systems: Denies chest pain or palpitation. Physical Examination: Lungs: Diminished breath sounds at bases. Heart: S1 and S2. Abdomen: Soft. Benign. Extremities: No edema. Impression And Plan: 1.Zujcx-zf-qdystsl kidney injury. Prerenal azotemia. Continue IV fluids. Continue p.o. fluids for hydration. 2.Chronic kidney disease stage 4 secondary to diabetes mellitus. Monitor renal panel. Avoid nephro toxic medication. 3.Hyperkalemia. The patient was treated with Lokelma and received Bicitra for metabolic acidosis. 4.Acidosis. The patient was treated with Bicitra. 5.Hyperkalemia. Advised on avoiding high potassium foods. Resume Veltassa on daily treatment and continue to follow up with Nephrology. EB/MODL Voice ID: [id number] Report ID: [id number]
== END 2023-04-07 10:43 | disposition home or self-care (01) | DRG 683 ==
LOC: ER 12:21 → ERHOLD 23:50 → 2ND 04-06 15:32
PROVIDERS: ADMIT Hospitalist; ATTEND Hospitalist
DX: N17.9 Acute kidney failure, unspecified (principal); E87.20 Acidosis, unspecified; E87.5 Hyperkalemia; N18.4 Chronic kidney disease, stage 4 (severe); I12.9 Hypertensive chronic kidney disease with stage 1 through stage 4 chronic kidney disease, or unspecified chronic kidney disease; E11.22 Type 2 diabetes mellitus with diabetic chronic kidney disease; D63.1 Anemia in chronic kidney disease; C61 Malignant neoplasm of prostate; N28.1 Cyst of kidney, acquired; E78.00 Pure hypercholesterolemia, unspecified; N40.0 Benign prostatic hyperplasia without lower urinary tract symptoms; F17.220 Nicotine dependence, chewing tobacco, uncomplicated; Z79.84 Long term (current) use of oral hypoglycemic drugs; Z79.899 Other long term (current) drug therapy
CPT/HCPCS: 36415; 76770; 80048; 80053; 80061; 80069; 82947; 83735; 85025; 93005; 99285; J0612; J1650; J1815; J1940; J7030; J7042; J7060; J7613

== ENCOUNTER 2023-07-24 06:13 | Day surgery (SDC) | payer OTHER ==
[2023-07-10 11:12] LABS: Absolute Lymphocytes (CBC) 1.6 K/uL (0.7-4.9); Hematocrit 35.5 % (39.6-49.0); Lymphocytes % 12.7 % (15.3-44.8); MCV 85.6 fL (80-100); MPV 7.6 fL (7.6-11.3); Platelets 294 thou/uL (152-406); RBC Red Blood Cell Count 4.14 M/uL (4.33-5.43)
--- NOTE | 2023-07-10 11:12 | RAD REPORT ---
EXAM DESCRIPTION: RAD - Chest Pa And Lat (2 Views) - 07/10/2023 11:06 am CLINICAL HISTORY: pre op Chest pain. COMPARISON: Chest Single View dated 11/09/2022; Abdomen Acute Series dated 03/06/2022; CHEST SINGLE V IEW dated 06/20/2012 TECHNIQUE: PA and lateral views of the chest were obtained. FINDINGS: The lungs are hyperexpanded compatible with COPD. The heart is upper limit of normal in si ze. No fracture or aggressive bony process. IMPRESSION: COPD without acute process identified. The USPSTF recommends annual screening for lung cancer with low-dose CT (LDCT) in adults aged 50 to 8 0 years who have a 20 pack-year smoking history and currently smoke or have quit within the past 15 y ears.
[2023-07-10 11:13] LABS: Protime INR 1.07
[2023-07-10 11:24] LABS: Potassium 4.3 mEq/L (3.5-5.1)
[2023-07-24] MEDS: NA CHLORIDE 0.9% 1,000 ML ONE (06:36)
[2023-07-24] MEDS: DEXTROSE 10%-WATER 500 ML IV ONE (06:52)
[2023-07-24] MEDS ORDERED: SUCCINYLCHOLINE 20 MG/ML (10 ML) IV ONE (07:07)
[2023-07-24] MEDS ORDERED: propofoL 200 MG/20 ML VIAL IV ONE (07:16)
[2023-07-24] MEDS ORDERED: ONDANSETRON 4 MG/2 ML VIAL ONE (07:16)
[2023-07-24] MEDS ORDERED: LIDOCAINE 1% MPF 5 ML VIAL ONE (07:17)
[2023-07-24] MEDS ORDERED: FENTANYL CITR 100 MCG/2 ML ONE (07:17)
[2023-07-24] MEDS ORDERED: EPHEDRINE SULF 50 MG/ML VIAL ONE (07:44)
[2023-07-24] MEDS: CEFAZOLIN SODIUM 2 GM/VIAL ONE (07:45)
[2023-07-24] MEDS ORDERED: dexAMETHasone 10 MG/ML VIAL ONE (07:45)
[2023-07-24] MEDS ORDERED: CODEINE 30MG/APAP 300MG TAB PO PRN (08:15)
--- NOTE | 2023-07-24 08:48 | OP ---
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 Principal Procedures: 1.Transrectal ultrasound-guided transperineal insertion of fiducial markers 2 placed. 2.Transrectal ultrasound-guided SpaceOAR gel insertion. Indication For Procedure: Mr. Quinones is a 68-year-old gentleman, who was evaluated for elevated PS A and was found to have a grade group 3 adenocarcinoma of the prostate. He was counseled on options for management and elected to proceed with radiation therapy. Procedure In Detail: The patient was consented in the preoperative holding area before being transfe rred to the operative suite where general anesthesia was induced. He was given Ancef 2 g IV antimicr obial prophylaxis, and pneumo boots were provided for DVT prophylaxis. He was placed in the high lit hotomy position, padded and secured to the table appropriately. The transrectal ultrasound probe was placed via his anus into his rectum with ease, and the prostate was visualized from the bladder all the way through the perineum using an ultrasound fluoro, that was biplanar in axial and sagittal mode s. A stepper device was used to hold the probe in position while these planes were visualized and to allow free hand movement with needle placements transperineally. The procedure was begun after his perineum was prepped with Betadine by using a needle to insert a fi ducial marker in the left anterior mid gland of his prostate. This was done using ultrasound guidanc e to ensure the needle entered transperineally and avoided the rectum and urethra, entering the prost ate accordingly as in the desired position. A similar fiducial was placed on the patient's right samuel e in the anterior mid gland, but this was in the region of a prior significant prostatic urethral terri cification noted within the right hemiprostate. This was also placed using ultrasound guidance to en sure the urethra was not injured and the rectum was not entered. I then utilized the SpaceOAR injection needle attached to a syringe of saline which was pre-primed, p laced via his perineum and the tip of the needle was observed as I navigated over the rectal hump int o the fat stripe representing the prerectal fat plane between the Denonvilliers space and the rectum. With a slight degree of hydrodissection, required a couple of points along the way in order to adeq uately get the needle into the appropriate position in the mid base region of the prostate in the mid line, I was able to appropriately navigate the needle into that position without injury to the rectum . This was confirmed in both axial and sagittal planes. I then aspirated to ensure no blood or succ us was obtained before removing the syringe with saline and attaching the SpaceOAR injection componen ts. I then with a slow continuous motion injected the SpaceOAR components beneath the prostate creat ing a beautiful thick buffer between Denonvilliers space and the wall of the rectum. This was eviden t ultrasonographically and I thus was able to generate a beautiful space all the way from the seminal vesicles through to the apex of the prostate nicely. The needle was removed under ultrasound visual ization to ensure absence of injury to the rectum and the procedure was completed. I then cleansed h is perineum off Betadine and applied a degree of pressure for the needle insertion sites for the slig ht degree of bleeding occurring in those locations. The ultrasound probe was removed, and the patien jonathon was taken out of the lithotomy position. He was awakened from general anesthesia, transferred to a stretcher, and then transferred to the recovery room in good condition. Complications: None. Discharge Disposition: He should follow up with Radiation Oncology within the next couple of weeks t o begin simulation and planning for the radiation therapy. Subsequent followup may be established wi in approximately 6 months, after he has likely completed radiation therapy for at least 3 month s. He may follow up with me sooner if he has any significant issues of a urologic nature that present in the meantime. MARY LOU/DEYSIL Voice ID: [id number] Report ID: [id number]
[2023-07-24 10:05] VITALS: BP 160/86; TEMP 97.4; O2SAT 99
== END 2023-07-24 09:35 | disposition home or self-care (01) ==
LOC: OR 06:13
PROVIDERS: ATTEND Urology
PROC: 0VH43YZ Insertion of Other Device into Prostate and Seminal Vesicles, Percutaneous Approach (ICD-10-PCS; principal; 2023-07-24 08:30)
DX: C61 Malignant neoplasm of prostate (principal); E11.9 Type 2 diabetes mellitus without complications; I10 Essential (primary) hypertension; E78.5 Hyperlipidemia, unspecified; N18.30 Chronic kidney disease, stage 3 unspecified
CPT/HCPCS: 87088; 85025; 87086; 80048; 36415; 85610; 82947 ×4; 71046; 55874; J2704; J2001; J3010; J1100; J2405; J7030